=== PATIENT | male | born 1965 | race Caucasian/White ===

== ENCOUNTER 2017-01-17 17:34 | Emergency (ER) | payer OTHER ==
[2017-01-17 17:42] VITALS: BMI 34.9
[2017-01-17 19:43] LABS: BASOPHIL 0.5 % (0-2.0); EOSINOPHIL 1.7 % (0-4.5); MCH 29.1 pg (25.7-33.7); MCHC 34.1 g/dl (32.0-35.9); MEAN CELL VOLUME 85.2 fl (80-96); MEAN PLT VOLUME 9.4 fl (7.5-11.1); NEUTROPHILS 66.4 % (42.8-82.8); PLATELET COUNT 206 K/MM3 (134-434); RDW 13.8 % (11.9-15.9); WHITE BLOOD COUNT 9.1 K/mm3 (4.0-10.0)
--- NOTE | 2017-01-17 19:44 | PDOC ---
Attending Attestation - HPI HPI: The patient is a 51 yo M with a past medical history significant for diverticulosis and gastritis (Dx 3 years ago who presents with 1.5 weeks of bright red blood from rectum. The patient also endorses melena on the second day of symptoms. He states that today the patient had a BM with bright red blood and clots in it. The patient scheduled a colonoscopy with his GI physician who referred him here if he felt any worsening symptoms. The patient denies recent ETOH and NSAID use. THe patient also endorses associated LLQ pain. - Physicial Exam PE: GENERAL: Well developed, well nourished. Awake and alert. No acute distress. HEENT: Normocephalic, atraumatic. PERRLA, EOMI. No conjunctival pallor. Sclera are non- icteric. Moist mucous membranes. Oropharynx is clear. NECK: Supple. Full ROM. No JVD. Carotid pulses 2+ and symmetric, without bruits. No thyromegaly. No lymphadenopathy. CARDIOVASCULAR: Regular rate and rhythm. No murmurs, rubs, or gallops. Distal pulses are 2+ and symmetric. PULMONARY: No evidence of respiratory distress. Lungs clear to auscultation bilaterally. No wheezing, rales or rhonchi. ABDOMINAL: Soft. tender to LLQ inguinal region. Non-distended. No rebound or guarding. No organomegaly. Normoactive bowel sounds. MUSCULOSKELETAL Normal range of motion at all joints. No bony deformities or tenderness. No CVA tenderness. EXTREMITIES: No cyanosis. No clubbing. No edema. No calf tenderness. SKIN: Warm and dry. Normal capillary refill. No rashes. No jaundice. NEUROLOGICAL: No gross focal neurological deficits. PSYCHIATRIC: Cooperative. Good eye contact. Appropriate mood and affect. - Medical Decision Making Documentation prepared by Flor Guido, acting as medical assisting program director for Terry Brooke MD/DO. <Flor Guido - Last Filed: 01/17/17 22:42> - Resident Resident Name: Murphy Cancino - ED Attending Attestation I have performed the following: I have examined & evaluated the patient, The case was reviewed & discussed with the resident, I agree w/resident's findings & plan, Exceptions are as noted <Terry Brooke - Last Filed: 01/17/17 23:03>
[2017-01-17] MEDS ORDERED: SODIUM CHLORIDE 1,000 ML IV STA (19:50)
[2017-01-17 19:59] LABS: INR 1.05 (0.82-1.09); PROTHROMBIN TIME (PATIENT) 11.6 SEC (9.98-11.88)
[2017-01-17] MEDS ORDERED: PANTOPRAZOLE SODIUM 80 MG in SODIUM CHLORIDE 100 ML IVPB SCH (20:00)
[2017-01-17] MEDS ORDERED: PANTOPRAZOLE SODIUM 100 ML IVPB ONE (20:04)
[2017-01-17] MEDS ORDERED: PANTOPRAZOLE SODIUM 40 MG in SODIUM CHLORIDE 100 ML IVPB ONE (20:06)
[2017-01-17 20:07] LABS: ALBUMIN 3.5 g/dl (3.4-5.0); ALK PHOS 77 U/L (45-117); ANION GAP 7 (8-16); BILIRUBIN,TOTAL 0.4 mg/dL (0.2-1.0); CALCIUM 8.8 mg/dL (8.5-10.1); CO2 26 mmol/L (21-32); GLUCOSE,RANDOM 89 mg/dL (74-106); SGOT/AST 20 U/L (15-37); SGPT/ALT 33 U/L (12-78); TOT PROT 7.2 g/dl (6.4-8.2)
--- NOTE | 2017-01-17 20:14 | PDOC ---
History of Present Illness - General Chief Complaint: Rectal Bleed Stated Complaint: BLOODY STOOL Time Seen by Provider: 01/17/17 18:54 - History of Present Illness Initial Comments: 01/17/17 20:08 51M w/ hx of gastritis and diverticulosis dx 3 years ago on colonoscopy presenting with BRBPR for past 1.5 weeks. Pt reports that 1.5 weeks ago, he noticed blood in the toilet bowl after his BM. Over the next few days, he had an episode of melena, 2 episodes of blood on his toiler paper, and this am, he witnessed blood and clots in his stool. He went to his PMD 3 days ago for this who gave him omeprazole, scheduled him for a colonoscopy/endoscopy next week, and told him to go to the ED if his symptoms worsen. Pt reports weakness, lightheadedness, and feeling bloated recently. He also endorses nausea, fecal urgency, SOB with a non-productive cough, and he denies diarrhea and constipation. He denies alcohol use and NSAID use. 01/17/17 20:17 01/17/17 20:20 Past History - Past Medical History Allergies/Adverse Reactions: Allergies Allergy/AdvReac Type Severity Reaction Status Date / Time No Known Allergies Allergy Verified 01/17/17 17:39 Home Medications: Ambulatory Orders Omeprazole 20 mg PO DAILY 01/17/17 GI Disorders: Yes (acid reflux) Hypercholesterolemia: Yes Other medical history: sleep apnea Comment:: 01/17/17 20:14 PMH: herniated disk hypertriglyceridemia sleep apnea on CPAP PSH: cholecystecomy appendectomy Meds: omeprazole Allergies: NKDA FAm Hx: HTN and gastritis in father, DM in mother Social Hx: denies alcohol and other toxic habits - Surgical History Appendectomy: Yes Cholecystectomy: Yes - Immunization History Immunization Up to Date: Yes - Psycho/Social/Smoking Cessation Hx Suicidal Ideation: No Smoking History: Never smoked Hx Alcohol Use: No Drug/Substance Use Hx: No Review of Systems - Review of Systems Comments:: 01/17/17 20:17 GENERAL: No fever, chills, night sweats HEAD, EYES, EARS, NOSE AND THROAT: +blurry vision, no ear pain, or sore throat CARDIOVASCULAR: No chest pain or palpitations RESPIRATORY: + cough, no wheezing, no hemoptysis. GASTROINTESTINAL: + nausea, no vomiting, diarrhea, or constipation, + blood in the stool. GENITOURINARY: No dysuria, frequency, or urgency MUSCULOSKELETAL: No joint or muscle swelling or pain. SKIN: No rashes or pruritis ENDOCRINE: No increased thirst. No abnormal weight change NEUROLOGIC: No headache, + dizziness, no loss of consciousness, or change in strength/sensation. *Physical Exam - Vital Signs Last Vital Signs Temp Pulse Resp BP Pulse Ox 98.5 F 93 H 18 144/94 98 01/17/17 17:39 01/17/17 17:39 01/17/17 17:39 01/17/17 17:39 01/17/17 17:39 - Physical Exam Comments: 01/17/17 20:19 GENERAL: Awake, alert, and fully oriented, in no acute distress HEAD: normocephalic, atraumatic HEENT: PERRLA, EOMI, NECK: Normal ROM, supple, no lymphadenopathy, JVD, or masses HEART: Regular rate and rhythm, normal S1 and S2, no murmurs, rubs or gallops, peripheral pulses normal and equal bilaterally. LUNGS: CTAB, no wheezing, no rales ABDOMEN: Soft, markedly tender in LLQ, nondistended, normoactive bowel sounds. No guarding, no rebound. No masses EXTREMITIES: Normal range of motion, no edema. SKIN: Warm, dry, no rashes or lesions noted. NEUROLOGICAL: Cranial nerves II through XII grossly intact. Normal speech, normal gait, no focal sensorimotor deficits ED Treatment Course - LABORATORY CBC & Chemistry Diagram: 01/17/17 19:16 01/17/17 19:10 - RADIOLOGY Radiology Studies Ordered: Category Date Time Status ABDOMEN & PELVIS CT WITH CONTR [CT] Stat CT Scan 01/17/17 19:49 Ordered Medical Decision Making - Medical Decision Making 01/17/17 20:20 51M w/ hx of gastritis and diverticulosis dx 3 years ago on colonoscopy presenting with BRBPR for past 1.5 weeks with lightheadedness, weakness, nausea , and SOB. Differential includes bleeding diverticuli vs. gastritis. -stool occult -CBC: Hgb of 15 -CMP: wnl -PT/INR/PTT: wnl -CT abdomen/pelvis:no diverticulitis or acute pathology -gave fluids, PPI drip, 01/17/17 23:04 *DC/Admit/Observation/Transfer Diagnosis at time of Disposition: GI bleed Qualifiers: GI bleed type/associated pathology: unspecified gastrointestinal hemorrhage type Qualified Code(s): K92.2 - Gastrointestinal hemorrhage, unspecified - Discharge Dispostion Disposition: HOME Condition at time of disposition: Stable Admit: No - Patient Instructions Printed Discharge Instructions: DI for Rectal Bleeding Additional Instructions: Your CT scan shows no diverticulitis or acute pathology. Your hemoglobin level is normal, your labwork is within normal limits, and your vitals are stable. Return to ED if your rectal bleeding worsens or you develop any concerning symptoms such as shortness of breath or chest pain. Otherwise, see your GI next week for your scheduled colonoscopy/endoscopy. - Attestations Physician Attestion: 01/17/17 23:10 I, Dr. Murphy Cancino, attest that this document has been prepared under my direction and personally reviewed by me in its entirety. I further attest, that it accurately reflects all work, treatment, procedures and medical decision -making performed by me.
[2017-01-17 23:27] VITALS: BP 138/86; PULSE 86; TEMP 97.9
--- NOTE | 2017-01-18 09:26 | EKG ---
Test Reason : Blood Pressure : / mmHG Vent. Rate : 073 BPM Atrial Rate : 073 BPM P-R Int : 124 ms QRS Dur : 088 ms QT Int : 382 ms P-R-T Axes : 084 -11 008 degrees QTc Int : 420 ms NORMAL SINUS RHYTHM POSSIBLE LEFT ATRIAL ENLARGEMENT NO PREVIOUS ECGS AVAILABLE Confirmed by JACOB VÁSQUEZ MD ([id number]) on 01/18/2017 9:25:43 AM Referred By: Confirmed By:JACOB VÁSQUEZ MD
== END 2017-01-17 23:26 | disposition home or self-care (01) ==
LOC: JER 17:34
PROC: 3E033GC Introduction of Other Therapeutic Substance into Peripheral Vein, Percutaneous Approach (ICD-10-PCS; principal; 2017-01-17)
PROC: 3E0337Z Introduction of Electrolytic and Water Balance Substance into Peripheral Vein, Percutaneous Approach (ICD-10-PCS; 2017-01-17)
DX: K92.2 Gastrointestinal hemorrhage, unspecified (principal); K21.9 Gastro-esophageal reflux disease without esophagitis; E78.00 Pure hypercholesterolemia, unspecified; G47.30 Sleep apnea, unspecified
CPT/HCPCS: 36415; 74177-TC; 80053; 85025; 85610; 86850; 86900; 86901; 93005; 93010; 99285-25